=== PATIENT | male | born 1975 | race Two or more races ===

== ENCOUNTER 2023-10-10 07:59 | Emergency (ER) | payer OTHER, SELFPAY ==
[2023-10-10 08:03] VITALS: BP 137/79; PULSE 83; RESP 16; TEMP 36.6; O2SAT 98; BMI 27.9
[2023-10-10 09:03] LABS: Influenza A PCR NEGATIVE (Negative); Influenza B PCR NEGATIVE (Negative); Resp Syncy Virus RNA Qual PCR NEGATIVE (Negative); SARS COV2 PCR INHOUSE NEGATIVE (Negative)
--- NOTE | 2023-10-10 09:50 | ED_ITS ---
HPI - Fever General Chief Complaint: Fever Stated Complaint: fever, rash Time Seen by Provider: 10/10/23 09:41 Source: patient Mode of arrival: ambulatory Limitations: language barrier ( Qatari-speaking site interpreter utilized) History of Present Illness HPI Narrative: patient is a 48-year-old male who presents emergency department for evaluation of low-grade fever 100.3 at home, a rash to the chest back and palms of both hands, night sweats, headache and fatigue. Symptom onset was 2 days ago. Denies any known sick contacts. Denies any chest pain or shortness of breath. Denies any IV drug usage, recent ill contacts, concern for sexually transmitted infection including syphilis. Denies any known tick bites or recent tick borne illnesses. He does report that he recently began using a lotion with Vaseline and cocoa butter, he was applying it to his chest after shaving, while applying it for the first time, that is when he noticed the rash on his chest. Related Data Allergies Allergy/AdvReac Type Severity Reaction Status Date / Time No Known Allergies Allergy Verified 10/10/23 08:04 Review of Systems 2 Review of Systems: Yes all other systems are reviewed and are negative [facility] Past Medical History Attestation statement: The following information was validated with the patient. Source: old records reviewed Social History Social History Advance Directives: No Advance Directives Information Provided: Yes Physical Exam 2 Vital Signs: Vital Signs: Last Vital Signs Temp 97.4 F 10/10/23 11:33 Pulse 75 10/10/23 11:33 Resp 18 10/10/23 11:33 BP 134/92 H 10/10/23 11:33 Pulse Ox 98 10/10/23 11:33 O2 Del Method Room Air 10/10/23 11:33 BMI result Body Mass Index 27.9 Appearance: Alert.?Oriented to person, place and time. No acute distress.?Normal affect. Eyes: Pupils equal, round and reactive to light.? ENT: Pharynx normal.?? No lesions or sores. Neck: Normal inspection.? Neck supple.?? CVS: Heart sounds normal. Normal heart rate and rhythm.? Pulses normal.?? Respiratory: No respiratory distress.? Lung sounds clear to auscultation bilaterally?? Abdomen: Soft and non-tender. Normoactive bowel sounds. No pulsatile mass.?? Skin: Skin warm and dry.? Normal skin color.? Torso with a macular rash, no papules or vesicles, no scaling. Bilateral palms of hands with erythematous circular nodular lesions, minimally blanchable.? Extremities: No lower extremity edema.? No calf ttp? Neuro: Moves all extremities spontaneously. Sensation intact bilaterally.Ambulates with normal steady gait. Medications Administered Discontinued Medications Generic Name Dose Route Start Last Admin Trade Name Freq PRN Reason Stop Dose Admin Penicillin G Benzathine 2,400,000 unit 10/10/23 10:43 10/10/23 11:25 Penicillin G Benzathine 2,400,000 Unit/4 Ml Syringe IM 10/10/23 10:44 2,400,000 unit ONCE ONE Administration Medical Decision Making Medical Decision Making [facility] Narrative: Patient is a 48-year-old male who presents emergency department for evaluation of constitutional symptoms and a rash as per HPI. Viral testing for COVID- 19/influenza / RSV is negative. Based on differential, sent testing for syphilis, tick-borne illnesses. Concern at this time for secondary syphilis based on appearance, decision made to treat prophylactically with penicillin G benzathine 2.4 million units intramuscular. He does admit that he was recently sexually active approximately 1-2 weeks ago with a new partner. Differential Diagnosis Differential Diagnoses: The differential diagnosis associated with the presentation includes ( Syphilis, secondary syphilis, ugyw-wcky-beokf disease, Mahendra mountain spotted fever, tick-borne illness, Contact dermatitis, dyshidrotic eczema, less likely to be Janeway lesions based on history Signs and symptoms.) Lab Data [facility] Lab Attestation statement: I reviewed the patient's lab results. CBC is without leukocytosis, a very mild normocytic anemia, no thrombocytopenia. BMP overall unremarkable 10/10/23 10:24 10/10/23 10:24 Labs: Lab Results 10/10/23 10/10/23 Range/Units 08:11 10:24 WBC 4.9 (4.8-10.8) X10*3/uL RBC 4.34 L (4.60-5.80) X10*6/uL Hgb 13.4 L (14.0-18.0) g/dl Hct 39.2 L (42.0-52.0) % MCV 90.3 (80.0-98.0) fL MCH 30.9 (27.0-33.0) pg MCHC 34.2 (31.0-36.0) g/dl RDW 12.7 (11.0-16.0) % Plt Count 241 (160-400) X10*3/uL MPV 8.9 L (9.4-12.4) fL Immature Gran % (Auto) 0.4 (0.0-0.4) % Neut % (Auto) 43.2 L (45-73) % Lymph % (Auto) 41.5 H (20-40) % Garvin % (Auto) 13.1 H (2-11) % Eos % (Auto) 1.2 (0-4) % Baso % (Auto) 0.6 (0-2) % Lymph # (Auto) 2.0 (1.2-4.9) X10*3/uL Garvin # (Auto) 0.6 (0.1-1.2) X10*3/uL Eos # (Auto) 0.1 (0.0-0.4) X10*3/uL Baso # (Auto) 0.0 (0.0-0.2) X10*3/uL Abs Immat Gran (auto) 0.02 (0.00-0.03) X10*3/uL Absolute Neuts (auto) 2.1 (2.0-8.3) x10*3/uL Absolute Nucleated RBC 0.000 (0.0-0.012) X10*3/uL Nucleated RBC % (auto) 0.0 (0.0-0.2) /100WBC Sodium 140 (135-145) mmol/L Potassium 4.7 (3.3-5.1) mmol/L Chloride 106 (96-108) mmol/L Carbon Dioxide 28 (22-29) mmol/L Anion Gap 11 L (12-20) BUN 10 (9-16) mg/dL Creatinine 0.79 (0.5-1.4) mg/dL Estim Creat Clear Calc 138.6 Estimated GFR > 60 Random Glucose 107 (60-115) mg/dL Calcium 8.9 (8.4-10.2) mg/dL T.pallidum Ab (EIA) Reactive A (Nonreactive) Influenza Type A (PCR) NEGATIVE (Negative) Influenza Type B (PCR) NEGATIVE (Negative) RSV RNA Qual (PCR) NEGATIVE (Negative) SARS-CoV-2 RNA (RT-PCR) NEGATIVE (Negative) External Record Review External record reviewed: Outpatient record Prescription Management I considered prescription management with: Antibiotic ( single dose intramuscular antibiotic in ED) Discharge Plan Discharge Clinical Impression: Rash Patient Disposition: Home, Self-Care Instructions: Acute Rash (ED) Additional Instructions: As discussed, your rash and associated symptoms today are most concerning for a possible syphilis infection or tick-borne illness infection. You received a single dose of penicillin G 2.4 million units intramuscular injection, this is an antibiotic that is used for syphilis. Should your test results come back positive within the next few days you will receive a call from the emergency department. You can take ibuprofen 200 mg, 3 tablets (600mg) every 6-8 hours as needed for pain, in addition to Tylenol 500 mg, 2 tablets (1,000mg) every 4-6 hours as needed for pain, but not to exceed 3 doses daily (3,000mg).? Please contact your primary care provider to arrange for a follow-up visit. Referrals: Physician,Unknown J [Primary Care Provider] - Interventions: ED Discharge Assessment Last Done: 10/10/23 11:33 Discharge Date/Time: 10/10/23 11:35 Print Language: Qatari
[2023-10-10 10:23] VITALS: BP 144/99; PULSE 75; RESP 18; TEMP 36.3; O2SAT 98
[2023-10-10 10:28] LABS: MANUAL DIFF FLAG NO
[2023-10-10 10:29] VITALS: BP 134/92
[2023-10-10 10:34] LABS: Basophils Percent Auto 0.6 % (0-2); Eosinophils Absolute Auto 0.1 X10*3/uL (0.0-0.4); Eosinophils Percent Auto 1.2 % (0-4); Hematocrit 39.2 % (42.0-52.0); Hemoglobin 13.4 g/dl (14.0-18.0); Imm Gran Abs Auto 0.02 X10*3/uL (0.00-0.03); Imm Gran Pct Auto 0.4 % (0.0-0.4); Lymphocytes Percent Auto 41.5 % (20-40); Mean Corpuscular HGB Conc 34.2 g/dl (31.0-36.0); Mean Corpuscular Hemoglobin 30.9 pg (27.0-33.0); Mean Corpuscular Volume 90.3 fL (80.0-98.0); Mean Platelet Volume 8.9 fL (9.4-12.4); Monocytes Absolute Auto 0.6 X10*3/uL (0.1-1.2); Monocytes Percent Auto 13.1 % (2-11); Neutrophils Absolute Auto 2.1 x10*3/uL (2.0-8.3); Neutrophils Percent Auto 43.2 % (45-73); Platelet Count 241 X10*3/uL (160-400); Red Blood Count 4.34 X10*6/uL (4.60-5.80); Red Cell Distribution Width 12.7 % (11.0-16.0); White Blood Count 4.9 X10*3/uL (4.8-10.8)
[2023-10-10 10:49] LABS: Anion Gap 11 (12-20); Blood Urea Nitrogen 10 mg/dL (9-16); Calcium 8.9 mg/dL (8.4-10.2); Carbon Dioxide 28 mmol/L (22-29); Chloride 106 mmol/L (96-108); Creatinine Clr Calc Pharmacy 138.6; Estimated Glomerular Filt Rate > 60; Glucose Random 107 mg/dL (60-115); Potassium 4.7 mmol/L (3.3-5.1); Sodium 140 mmol/L (135-145)
[2023-10-10] MEDS: Penicillin G Benzathine 2,400,000 UNIT/4 ML SYRINGE 2400000 UNIT IM (11:25)
--- NOTE | 2023-10-10 11:25 | PC.NURSE ---
im given in b/l vastus lateralus
[2023-10-10 11:26] LABS: Syphilis Screen Reactive (Nonreactive)
[2023-10-10 11:33] VITALS: BP 134/92; PULSE 75; RESP 18; TEMP 36.3; O2SAT 98
[2023-10-11 14:03] LABS: A. Phagocytphilium DNA,RT-PCR NOT DETECTED (NOT DETECTED); Babesia Microti DNA, RT-PCR NOT DETECTED (NOT DETECTED); Borrelia Miyamotoi,DNA RT-PCR NOT DETECTED (NOT DETECTED); E.Chaffeensis DNA RT-PCR NOT DETECTED (NOT DETECTED); Lyme(Borrelia ssp)DNA RT-PCR NOT DETECTED (NOT DETECTED)
[2023-10-14 17:43] LABS: Lyme Abs Screen <0.90 index
[2023-10-16 13:26] LABS: RPR Quantitative Reactive 1:8 (Nonreactive)
[2023-10-16 13:27] LABS: T.Pallidum Particle Agg Test Reactive (Nonreactive)
== END 2023-10-10 11:35 | disposition home or self-care (01) ==
PROVIDERS: Nurse Practitioner Family; Emergency Provider Emergency Medicine Emergency Medical Services
DX: R21 Rash and other nonspecific skin eruption (principal); R50.9 Fever, unspecified; Z03.818 Encounter for observation for suspected exposure to other biological agents ruled out
CPT/HCPCS: 0241U; 36415; 80048; 85025; 86592; 86617; 86618; 86780; 87468; 87469; 87478; 87484; 87798; 96372; 99283; 99284; J0561

== ENCOUNTER 2023-10-15 15:37 | Emergency (ER) | payer OTHER, SELFPAY ==
[2023-10-15 15:43] VITALS: BP 135/86; PULSE 86; RESP 16; TEMP 36.7; O2SAT 97; BMI 27.4
--- NOTE | 2023-10-15 15:43 | ED.GENADULT ---
HPI - General Adult General Chief complaint: Recheck/Abnormal Lab/Rx Stated complaint: was here last week, wants labs rechecked Time Seen by Provider: 10/15/23 15:46 Source: patient Mode of arrival: ambulatory Limitations: no limitations History of Present Illness ED Provider: Russel TUCKER HPI narrative: 48-year-old male presents seeking STD results, reports he was told to come back to be seen. Add to have follow-up on the rash that he presented with to the emergency department a few days ago, he reports he was seen on 10/09 has not heard anything back about his STD testing. He reports his rash is completely gone. No new complaints. Denies fevers, chills, chest pain, shortness of breath, nausea, vomiting, abdominal pain, headache, vision changes, dizziness, weakness, rash, changes in urination or discharge from penis. Related Data Allergies Allergy/AdvReac Type Severity Reaction Status Date / Time No Known Allergies Allergy Verified 10/15/23 15:45 Review of Systems Review of Systems: Yes all other systems are reviewed and are negative [facility] Past Medical History Attestation statement: The following information was validated with the patient. Source: old records reviewed and nursing notes reviewed Physical Exam ED Vital Signs: Vital Signs - 24 hr 10/15/23 15:43 Temperature 98.0 F Pulse Rate 86 Respiratory Rate 16 Blood Pressure 135/86 Pulse Oximetry 97 Oxygen Delivery Method Room Air BMI result Body Mass Index 27.4 vss Appearance: Alert.? Oriented X3.? No acute distress.? Head: Normocephalic, atraumatic, no step-offs or deformities Eyes: Pupils equal, round and reactive to light.? CVS: Normal heart rate and rhythm.? Pulses normal.? Respiratory: No respiratory distress.? Breath sounds normal.? Abdomen: Soft and nontender.? Skin: Skin warm and dry.? Normal skin color.? Normal skin turgor.? Extremities: No lower extremity edema.? No calf ttp. 5/5 strength to bilateral upper and lower extremities Neuro: Oriented X 3.? No motor deficit.? No sensory deficit. CN 2-12 intact Course Course Course Narrative: This is an RME done by VIRGEN Ruiz: Additional HPI, ROS, PE not included below will be deferred to primary provider. 48 year old male who presents for concerns about lab work done last week. He was told to come back to get results for his blood work, which returned positive for syphilis. Medical Decision Making Medical Decision Making MDM Narrative: 1548 48 yo m presents requesting test results from visit on 10/10/23 Upon chart review he is + for syphilis and was treated adequatley PE benign Likely syphilis. Full pannel STD screen should be done by pcp. No signs of necrotizing infection or neuro syphilis. Plan- dc home w/ pcp follow up Differential Diagnosis Differential Diagnoses: The differential diagnosis associated with the presentation includes Likely syphilis. Full pannel STD screen should be done by pcp. No signs of necrotizing infection or neuro syphilis. Admission/Observation Consideration of admission/observation: Escalation of care including admission/observation considered External Record Review External record reviewed: Office record, Outpatient record and Prior outpatient labs Discharge Plan Discharge Clinical Impression: Syphilis Patient Disposition: Home, Self-Care Instructions: Sexually Transmitted Diseases (ED), Safe Sex Practices (ED) Additional Instructions: Take your medications as prescribed. If you were prescribed antibiotics today, it is important that you take your medication to their entirety, do not skip any doses, do not finish them early. Follow-up with your primary care provider this week. Return to the emergency department with new or worsening symptoms. In case of emergency call 911 Referrals: Physician,Babs J [Primary Care Provider] - Stand Alone Forms: Work/School Release Print Language: Nepalese
== END 2023-10-15 15:54 | disposition home or self-care (01) ==
PROVIDERS: Emergency Provider Emergency Medicine
DX: A53.9 Syphilis, unspecified (principal)
CPT/HCPCS: 99281

== ENCOUNTER 2024-07-23 19:06 | Emergency (ER) | payer OTHER, SELFPAY ==
--- NOTE | ~2024-07-23 | XR_ITS ---
CLINICAL HISTORY: pain, swelling 3 view left foot Comparison: None Findings: Bones intact. No dislocations. Mild arthritic changes of the 1st metatarsophalangeal and interphalangeal joints. Tiny foci of erosion involving the medial aspect of the head of the 1st proximal phalanx. No ankle effusion. No radiopaque foreign body. IMPRESSION: Tiny foci of erosion involving the head of the 1st proximal phalanx. This is likely on the basis of an inflammatory arthropathy. Infection can not be excluded however. This document has been electronically signed by: Niru Graham MD on 07/23/2024 20:17:15
[2024-07-23 19:17] VITALS: BP 150/90; PULSE 88; RESP 16; TEMP 36.3; O2SAT 98; BMI 29.8
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
[2024-07-23 21:02] LABS: MANUAL DIFF FLAG NO
[2024-07-23 21:03] LABS: Basophils Absolute Auto 0.1 X10*3/uL (0.0-0.2); Basophils Percent Auto 0.8 % (0-2); Eosinophils Absolute Auto 0.1 X10*3/uL (0.0-0.4); Eosinophils Percent Auto 1.4 % (0-4); Hemoglobin 15.6 g/dl (14.0-18.0); Imm Gran Abs Auto 0.02 X10*3/uL (0.00-0.03); Imm Gran Pct Auto 0.2 % (0.0-0.4); Mean Corpuscular HGB Conc 35.5 g/dl (31.0-36.0); Mean Corpuscular Hemoglobin 31.7 pg (27.0-33.0); Mean Corpuscular Volume 89.4 fL (80.0-98.0); Mean Platelet Volume 9.7 fL (9.4-12.4); Monocytes Absolute Auto 0.7 X10*3/uL (0.1-1.2); Monocytes Percent Auto 8.5 % (2-11); Neutrophils Absolute Auto 5.4 x10*3/uL (2.0-8.3); Neutrophils Percent Auto 65.1 % (45-73); Platelet Count 252 X10*3/uL (160-400); Red Blood Count 4.92 X10*6/uL (4.60-5.80); Red Cell Distribution Width 13.7 % (11.0-16.0); White Blood Count 8.3 X10*3/uL (4.8-10.8)
[2024-07-23 21:16] LABS: Alanine Aminotransferase 107 U/L (0-40); Albumin Level 4.4 g/dL (3.5-5.0); Alkaline Phosphatase 97 U/L (39-117); Anion Gap 12 (12-20); Aspartate Amino Transferase 77 U/L (5-37); Bilirubin Total 0.8 mg/dL (0.0-1.0); Blood Urea Nitrogen 15 mg/dL (9-16); Calcium 9.1 mg/dL (8.4-10.2); Carbon Dioxide 27 mmol/L (22-29); Chloride 105 mmol/L (96-108); Creatinine Clr Calc Pharmacy 107.4; Estimated Glomerular Filt Rate > 60; Glucose Random 149 mg/dL (60-115); Potassium 3.3 mmol/L (3.3-5.1); Sodium 141 mmol/L (135-145)
[2024-07-23] MEDS: predniSONE 20 MG TABLET 40 MG PO (23:35)
[2024-07-23] MEDS: Colchicine 0.6 MG TABLET 1.2 MG PO (23:35)
[2024-07-24] MEDS: Colchicine 0.6 MG TABLET PO (00:30)
[2024-07-24 00:33] VITALS: BP 154/95; PULSE 100; RESP 16; TEMP 36.3; O2SAT 97
[2024-07-24 00:35] VITALS: BP 154/95; PULSE 100; RESP 16; TEMP 36.3; O2SAT 97
== END 2024-07-24 00:35 | disposition home or self-care (01) ==
PROVIDERS: Emergency Provider Emergency Medicine Emergency Medical Services
DX: M10.9 Gout, unspecified (principal)
CPT/HCPCS: 36415; 73630; 80053; 85025; 99283

== ENCOUNTER → 2024-07-23 19:20 | Outpatient (BNV) | payer OTHER, SELFPAY | PROVIDERS: Visit Provider Radiology Diagnostic Radiology | DX: M79.672 Pain in left foot (principal); R22.42 Localized swelling, mass and lump, left lower limb | CPT/HCPCS: 73630 ==